=== PATIENT | female | born 1980 | race Hispanic/Latino ===

== ENCOUNTER 2016-06-06 19:32 | Emergency (ER) | payer BC ==
[2016-06-06 19:52] VITALS: RESP 18
[2016-06-06 20:19] LABS: BASOPHILS # (AUTO) 0.04 10*3/UL; BASOPHILS % (AUTO) 0.4 % (0-1); EOSINOPHILS % (AUTO) 2.9 % (0-8); HEMATOCRIT 40.7 % (37.0-47.0); HEMOGLOBIN 13.7 g/dL (12.0-16.0); LYMPHOCYTES # (AUTO) 3.42 10*3/uL; MEAN CORPUSCULAR HEMOGLOBIN 28.5 PG (27-31); MEAN CORPUSCULAR HGB CONC 33.7 g/dL (33-37); MEAN CORPUSCULAR VOLUME 84.6 FL (81-99); MEAN PLATELET VOLUME 9.4 FL (7.4-12.2); MONOCYTES # (AUTO) 0.66 10*3/UL (0.3-0.8); MONOCYTES % (AUTO) 6.4 % (5-15); NEUTROPHILS # (AUTO) 5.86 10*3/UL; NEUTROPHILS % (AUTO) 56.8 % (50-80); RED BLOOD COUNT 4.81 10^6/uL (4.20-5.40)
[2016-06-06 20:20] LABS: PLATELET MORPHOLOGY COMMENT NORMAL MORPHOLOGY (NORM); RBC MORPHOLOGY COMMENT NORMAL MORPHOLOGY (NORM); WBC MORPHOLOGY COMMENT NORMAL MORPHOLOGY (NORM)
--- NOTE | 2016-06-06 21:40 | DI ---
PA /LATERAL CHEST X-RAY, 06/06/2016 7:56 PM : Clinical History: Cough. Previous Exam: 08/04/2015. There is no acute soft tissue or bony abnormality. Heart size is normal. Lungs are clear. Mediastinal structures are normal. There are no pulmonary nodules. Reading: Normal chest x-ray. There has been no interval change.
--- NOTE | 2016-06-06 22:28 | PDOC ---
Upper Respiratory HPI - General Chief Complaint: General Medical Stated Complaint: COUGH, HEADACHE, BODY ACHES FEVER X 3-4 DAYS Date Seen by Provider: 06/06/16 Time Seen by Provider: 19:45 - History of Present Illness Initial Comments: Patient is a very nice 35-year-old woman who is had 4 days of cough some low- grade fever increasing shortness of breath. She is a smoker she does not have any known sick contacts has not been around anybody with influenza has felt a general body chills is also had an episode or 2 of posttussive emesis. - Patient Home Medications Home Medications: Home Medications Ibuprofen 4 cap PO BID cap 10/29/15 Acetaminophen [Tylenol] 2 tab PO PRN PRN 06/06/16 Dm/P-Ephed/Acetaminoph/Doxylam [Nyquil D Cold & Flu Liquid] 30 ml PO PRN PRN 05/20 Levofloxacin [Levaquin] 750 mg PO DAILY #7 tablet 06/06/16 - Patient Allergies Allergies/Adverse Reactions: Allergies Allergy/AdvReac Type Severity Reaction Status Date / Time ranitidine HCl [From Zantac] Allergy Anaphylaxis Verified 06/06/16 19:43 Past Medical History - heen HEENT History: Denies History Cardiovascular History: Denies History Respiratory History: Denies History Gastrointestinal History: Crohn's Genitourinary History: Denies History Endocrine History: Denies History Musculoskeletal History: Fibromyalgia, Back Pain Prosthesis or Implant: No Additional Musculoskeletal History: 2004 A RESULT OF A DOMESTIC DISPUTE Neurological History: Denies History Blood Disorders: Denies History Psychiatric History: Denies History History of Sexually Transmitted Diseases: No Female Reproductive History: Denies History Obstetrical History: Denies History Cancer History: Denies History In Past Year Been Physically Harmed or Verbally Threatened: No History of MDRO: No History of Other Communicable Diseases: No Tobacco Use: Current Every Day Smoker Alcohol Use: None Substance Use Type: None Previous Surgical History: Yes Type / Date of Surgery: TUBLAL LIGATION, EGD/Colonoscopy Anesthesia Reactions: No Malignant Hyperthermia: No Significant Family History: No pertinent family hx Past Medical History Reviewed: Reviewed - No Changes ROS - Limitations ROS Limitations: No Limitations Constitution: REPORTS: Fever Neurological: REPORTS: Denies Neuro Symptoms Musculoskeletal: REPORTS: Denies MS Symptoms Upper Respiratory/Fever Exam - General Appearance General Appearance: REPORTS: Alert, Cooperative, No Acute Distress - HEENT HEENT: POSITIVE: Head Inspection Nml - Respiratory Respiratory: REPORTS: No Respiratory Distress, Other (Left basilar rales otherwise clear) - Abdomen Abdomen: Soft: (All Quadrants), Normal Bowel Sounds: (All Quadrants), Denies Tenderness: (All Quadrants) - Cardiovascular Cardiovascular: REPORTS: Regular Rate and Rhythm, Heart Sounds Normal - Neurological / Psychological Neurological: POSITIVE: Affect Apporpriate, Oriented X3 Upper Resp/Fever Progress - Results Reviewed by me Xrays/CTs/US Reviewed by me: Yes Radiology Findings: Possible left lingular or left lower lobe pneumonia. Lab Results Reviewed: Yes Lab Results:: Laboratory Results 06/06/16 Range/Units 20:13 WBC 10.31 (4.8-10.8) 10^3/uL RBC 4.81 (4.20-5.40) 10^6/uL Hgb 13.7 (12.0-16.0) g/dL Hct 40.7 (37.0-47.0) % MCV 84.6 (81-99) FL MCH 28.5 (27-31) PG MCHC 33.7 (33-37) g/dL RDW Std Deviation 43.0 (39-50) fL RDW Coeff of Carmen 14.1 (11.5-14.5) % Plt Count 324 (140-350) 10*3/uL MPV 9.4 (7.4-12.2) FL Immature Gran % (Auto) 0.3 (0-5) % Neut % (Auto) 56.8 (50-80) % Lymph % (Auto) 33.2 (10-50) % York % (Auto) 6.4 (5-15) % Eos % (Auto) 2.9 (0-8) % Baso % (Auto) 0.4 (0-1) % Immature Gran # (Auto) 0.03 10*3/UL Neut # (Auto) 5.86 10*3/UL Lymph # (Auto) 3.42 10*3/uL York # (Auto) 0.66 (0.3-0.8) 10*3/UL Eos # (Auto) 0.30 10*3/UL Baso # (Auto) 0.04 10*3/UL WBC Morphology Comment Normal morphology (NORM) Plt Morphology Comment Normal morphology (NORM) RBC Morph Comment Normal morphology (NORM) - Patient's Progress MDM / ED Course: This patient is a smoker several days of increasing shortness of breath and cough and substantial feelings of fatigue and malaise despite not having substantial fever. She is a borderline white blood cell count at the upper limit of normal and her cough is productive. She has borderline hypoxia with a SaO2 around 91-93 on room air. Ultimately her chest x-ray is a bit of a soft call but I do think she may have a lingular infiltrate. This combined with the clinical picture she presents with I think the better part of lico here is to get her treated for a community acquired pneumonia with some Levaquin. Patient Care Time - Estimated PCT Patient Care Time (In Minutes): 35 Vital Signs - Recent Vital Signs Vital Signs: Vital Signs (Last 8 hours) Temp Pulse Resp BP Pulse Ox 06/06/16 19:33 97.8 F 92 18 119/83 93 - VS Reviewed Vital Signs Reviewed: Yes Discharge Clinical Impression: Pneumonia Qualifiers: Pneumonia type: due to unspecified organism Laterality: left Lung location: lower lobe of lung Qualifier Code: (J18.1) Lobar pneumonia, unspecified organism Discharge Disposition: Discharged to Home Condition: Stable Prescriptions / Orders: Levofloxacin [Levaquin] 750 mg PO DAILY #7 tablet Patient Instructions Given at Discharge: Pneumonia (ED) Additional Instructions: Take your antibiotics as prescribed Follow-up with your primary care provider in 2-3 days to reevaluate your lungs Follow-up at 4-6 week interval for repeat chest x-ray Return here with any substantial worsening of your symptoms dizziness lightheadedness or any other concerning symptoms. Forms: ED : Medical Release Follow Up With: HALINA MATT [Primary Care Provider] -
[2016-06-07 01:54] VITALS: TEMP 98
== END 2016-06-06 21:57 | disposition home or self-care (01) ==
LOC: ER 19:32
DX: J18.1 Lobar pneumonia, unspecified organism (principal); R50.9 Fever, unspecified; R06.02 Shortness of breath; R11.2 Nausea with vomiting, unspecified
CPT/HCPCS: 71020; 85025; 99283

== ENCOUNTER 2016-07-27 19:55 | Emergency (ER) | payer BC ==
[2016-07-27] MEDS ORDERED: LIDOCAINE 2% 20 MG/ML - 20 ML VIAL ONE (20:07)
--- NOTE | 2016-07-27 21:14 | PDOC ---
Hand / Wrist Injury HPI - General Chief Complaint: Laceration / Wound Stated Complaint: LEFT 3RD DIGIT LACERATION Date Seen by Provider: 07/27/16 Time Seen by Provider: 20:30 - History of Present Illness Initial Comments: Patient's very nice 35-year-old woman who was working on a pickup truck when she had a parked slip and Sugar finger she pulled her finger out and this caused too small lacerations on her middle finger of her left hand. Have you received a tetanus shot in the past 10 years?: Yes - Patient Home Medications Home Medications: Home Medications Ibuprofen 4 cap PO BID cap 10/29/15 Acetaminophen [Tylenol] 2 tab PO PRN PRN 06/06/16 Dm/P-Ephed/Acetaminoph/Doxylam [Nyquil D Cold & Flu Liquid] 30 ml PO PRN PRN 05/20 Levofloxacin [Levaquin] 750 mg PO DAILY #7 tablet 06/06/16 Benzonatate [Tessalon Perle] 100 mg PO TID PRN #30 cap 06/09/16 - Patient Allergies Allergies/Adverse Reactions: Allergies Allergy/AdvReac Type Severity Reaction Status Date / Time ranitidine HCl [From Zantac] Allergy Anaphylaxis Verified 07/27/16 20:18 Past Medical History - heen HEENT History: Denies History Cardiovascular History: Denies History Respiratory History: Denies History Gastrointestinal History: Crohn's Genitourinary History: Denies History Endocrine History: Denies History Musculoskeletal History: Fibromyalgia, Back Pain Prosthesis or Implant: No Additional Musculoskeletal History: 2004 A RESULT OF A DOMESTIC DISPUTE Neurological History: Denies History Blood Disorders: Denies History Psychiatric History: Denies History History of Sexually Transmitted Diseases: No Cancer History: Denies History History of MDRO: No History of Other Communicable Diseases: No Alcohol Use: None Substance Use Type: None Previous Surgical History: Yes Type / Date of Surgery: TUBLAL LIGATION, EGD/Colonoscopy Anesthesia Reactions: No Malignant Hyperthermia: No Significant Family History: No pertinent family hx Past Medical History Reviewed: Reviewed - No Changes ROS - Limitations ROS Limitations: No Limitations Constitution: REPORTS: Denies Symptoms Cardiovascular: REPORTS: Denies Cardiac Symptoms Respiratory: REPORTS: Denies Resp Symptoms Hand / Wrist Injury Exam - General Appearance General Appearance: POSITIVE: Alert, Cooperative, No Acute Distress - Extremities Upper Extremity: POSITIVE: Other (she has 2 flap type lacerations on the middle finger of her left hand one in the middle phalangeal between the distal interphalangeal joint and proximal interphalangeal joint and then one on the tip of the finger.) Neurovascular / Tendon: POSITIVE: Sensation Normal, Motor Normal, No Vascular Compromise, Tendon Function Normal Procedure - Laceration/Wound Repair Wound Length (cm): 4 Wound's Depth, Shape: Into subcutaneous tissue Local Anesthesia Used - Indicate Amt Used in Comment: Lidocaine 2%: Yes Wound Explored: No foreign body removed Wound Debrided: Minimal Wound Repaired With: Sutures single layer Suture Size/Type: 4:0 Number of Sutures: 2 Layer Closure?: No Hand / Wrist Injury Progress - Patient's Progress MDM / ED Course: 2 running sutures were placed in this finger. Both of which were flap some part of the flap is probably going to and slough. The viable tissue should seat nicely and vascular damage that a few days by her primary care doctor and sutures out in 7-10 days. Patient Care Time - Estimated PCT Patient Care Time (In Minutes): 40 Vital Signs - VS Reviewed Vital Signs Reviewed: Yes Discharge Clinical Impression: Laceration - injury Discharge Disposition: Discharged to Home Condition: Stable Additional Instructions: Monitor for infection Follow-up with primary care provider in the next few days to revaluate her finger Have sutures removed in 7-10 days Return with any concerns questions or worsening condition
[2016-07-27] MEDS ORDERED: BACITRACIN 0.9 GM PACKET OINT TOPICAL ONE (21:26)
[2016-07-28 00:49] VITALS: RESP 20; TEMP 97.2
== END 2016-07-27 21:33 | disposition home or self-care (01) ==
LOC: ER 19:55
DX: S61.213A Laceration without foreign body of left middle finger without damage to nail, initial encounter (principal); W45.8XXA Other foreign body or object entering through skin, initial encounter
CPT/HCPCS: 12002; 99282; J2001